=== PATIENT | female | born 1995 | race Caucasian/White ===

== ENCOUNTER 2020-09-26 02:16 | Emergency (ER) | payer OTHER ==
[~2020-09-26] VITALS: Ht 167.6 cm; Wt 77.1 kg
[2020-09-26 02:34] VITALS: Ht 167.6 cm; Wt 77.1 kg
[2020-09-26 03:12] LABS: BASOPHIL % 0.6 % (0.2-1.3); PLATELET COUNT 261 x10^3mcL (179-408)
[2020-09-26 03:17] LABS: RED CELL DISTRIBUTION WIDTH 14.7 % (12.3-17.7)
[2020-09-26 03:28] LABS: ALKALINE PHOSPHATASE 173 U/L (46-116); ALT/SGPT 45 U/L (14-59); AST/SGOT 61 U/L (15-37); BILIRUBIN TOTAL 0.13 mg/dL (0.20-1.00); CALCIUM 8.6 mg/dL (8.5-10.1); CHLORIDE SERUM 106 mmol/L (98-107); CREATININE SERUM 0.7 mg/dL (0.6-1.0); GFR1 > 60 mL/min; GLUCOSE SERUM 128 mg/dL (74-106); LIPASE 149 IU/L (73-393); POTASSIUM SERUM 3.6 mmol/L (3.5-5.1); SODIUM SERUM 142 mmol/L (136-145); TOTAL PROTEIN, SERUM 6.7 g/dL (6.4-8.2)
[2020-09-26 03:31] LABS: ALBUMIN 3.3 g/dL (3.4-5.0)
[2020-09-26 04:12] VITALS: BP 109/59
== END 2020-09-26 04:12 | disposition home or self-care (01) ==
LOC: ED 02:16
PROVIDERS: Emergency Medicine
DX: K80.20 Calculus of gallbladder without cholecystitis without obstruction (principal)